=== PATIENT | female | born 1985 | race African-American/Black ===

== ENCOUNTER 2025-07-07 08:57 | Emergency (ER) | payer OTHER ==
[~2025-07-07] VITALS: Ht 172.7 cm; Wt 149.9 kg
[2025-07-07 09:10] VITALS: PULSE 77; RESP 24; TEMP 98.1; O2SAT 95
[2025-07-07] MEDS ORDERED: LORAZEPAM 0.5 MG TAB ONE (09:23)
[2025-07-07] MEDS ORDERED: ATIVAN1 MG PO (09:25)
[2025-07-07] MEDS: LORAZEPAM 1 MG TAB PO ONE (09:27)
== END 2025-07-07 09:35 | disposition home or self-care (01) ==
LOC: FSED 09:03
DX: F43.21 Adjustment disorder with depressed mood (principal); F41.9 Anxiety disorder, unspecified; J45.909 Unspecified asthma, uncomplicated
CPT/HCPCS: 99284